=== PATIENT | female | born 2000 | race Two or more races ===

== ENCOUNTER 2022-02-10 23:27 | Emergency (ER) | payer OTHER ==
[~2022-02-10] VITALS: Ht 162.6 cm; Wt 84.4 kg
[2022-02-11 00:52] VITALS: BP 111/72
[2022-02-11 02:16] LABS: Alcohol, Urine < 3.0 mg/dL (0-10); Amphetamine Screen, Urine NEGATIVE (NEGATIVE); Barbiturate Scree,Urine NEGATIVE (NEGATIVE); Benzodiazephine Screen, Urine NEGATIVE (NEGATIVE); Cannabinoid Screen, Urine POSITIVE (NEGATIVE); Cocaine Screen, Urine NEGATIVE (NEGATIVE); Opiate Scree,Urine NEGATIVE (NEGATIVE); Phencyclidine Screen, Urine NEGATIVE (NEGATIVE)
== END 2022-02-11 03:18 | disposition home or self-care (01) ==
LOC: ER 23:27
DX: F41.9 Anxiety disorder, unspecified (principal); F12.10 Cannabis abuse, uncomplicated; R94.31 Abnormal electrocardiogram [ECG] [EKG]
CPT/HCPCS: 80307; 93005